=== PATIENT | female | born 1970 | race Caucasian/White ===

== ENCOUNTER 2021-10-20 21:46 | Emergency (ER) | payer OTHER ==
[2021-10-20] MEDS ORDERED: Aspirin Chewable 81 MG TAB ONE (22:21)
[2021-10-20 22:34] LABS: #Basophils 0.1 10x3/uL (0.0-0.2); #Eosinphils 0.1 10x3/uL (0.0-0.5); #Monocytes 0.4 10x3/uL (0.0-1.1); #Neutrophils 8.2 10x3/uL (1.5-8.4); %Basophils 0.5 % (0.0-2.0); %Eosinophils 1.2 % (0.0-6.0); %Lymphocytes 12.2 % (18.0-47.0); %Monocytes 4.1 % (0.0-10.0); %Neutrophils 81.7 % (40.0-75.0); Hemoglobin 13.6 g/dL (12.0-15.5); Mean Corpuscular HGB CONC 35.1 g/dL (32.0-36.0); Mean Corpuscular Hemoglobin 29.3 pg (27.0-33.0); Mean Corpuscular Volume 83.6 fl (81.6-98.3); Mean Platelet Volume 9.9 fl (7.4-10.4); Platelet Count 266 10x3/uL (150-450); RBC Distribution Width 12.7 % (11.5-14.5); Red Blood Cell (RBC) Count 4.64 10x6/uL (3.90-5.03); White Blood Cell (WBC) Count 10.1 10x3/uL (3.5-10.5)
[2021-10-20 22:46] LABS: ALT (SGPT) 22 U/L (8-55); AST (SGOT) 17 U/L (5-34); Albumin 4.6 g/dL (3.5-5.0); Alkaline Phosphatase 62 U/L (40-110); Anion Gap 12 mmol/L (10-20); BUN (Urea Nitrogen) 13 mg/dL (9.8-20.1); Bilirubin, Total 0.4 mg/dL (0.2-1.2); Calc. Creatinine Clearance 0 mL/min (70-130); Calcium 9.3 mg/dL (7.8-10.44); Carbon Dioxide 27 mmol/L (22-29); Chloride 104 mmol/L (98-107); Estimated GFR 106; Globulin 2.7 g/dL (2.4-3.5); Glucose 118 mg/dL (70-105); Lipase 45 U/L (8-78); Potassium 4.3 mmol/L (3.5-5.1); Protein, Total 7.3 g/dL (6.0-8.3); Sodium 139 mmol/L (136-145)
[2021-10-20] MEDS ORDERED: Lidocaine Viscous Sol 2% 15 ml UD Cup ONE (22:51)
[2021-10-20] MEDS ORDERED: Mag-Al Plus 1200 MG/1200 MG/120 MG/30 ML UDCUP ONE (22:51)
[2021-10-21 00:41] LABS: Troponin I Less than 0.010 ng/mL (< 0.028)
== END 2021-10-21 01:04 | disposition home or self-care (01) ==
LOC: CSHERS 21:46
DX: R07.2 Precordial pain (principal)
CPT/HCPCS: 71045; 80053; 83690; 84484; 85025; 93005

== ENCOUNTER 2021-10-26 08:15 | Outpatient (CLI) | payer OTHER | END 2021-10-26 08:16 | disposition home or self-care (01) | LOC: CSHMAMMO 08:15 | PROVIDERS: ATTEND Obstetrics & Gynecology | DX: Z12.31 Encounter for screening mammogram for malignant neoplasm of breast (principal); Z80.3 Family history of malignant neoplasm of breast | CPT/HCPCS: 77063; 77067 ==

== ENCOUNTER 2022-04-11 21:51 | Emergency (ER) | payer OTHER ==
[2022-04-11] MEDS ORDERED: Boostrix 0.5 ML (Tdap) VIAL (>/=7 yrs of age) ONE (22:19)
[2022-04-11] MEDS ORDERED: Triple Antibiotic Oint 1 GM Packet ONE (23:01)
== END 2022-04-11 23:05 | disposition home or self-care (01) ==
LOC: CSHERS 21:51
DX: S61.051A Open bite of right thumb without damage to nail, initial encounter (principal); Z23 Encounter for immunization; W55.01XA Bitten by cat, initial encounter
CPT/HCPCS: 90471; 90715

== ENCOUNTER 2023-04-16 10:21 | Outpatient (CLI) | payer OTHER | END 2023-04-16 10:22 | disposition home or self-care (01) | LOC: CSHMAMMO 10:21 | PROVIDERS: ATTEND Obstetrics & Gynecology | DX: Z12.31 Encounter for screening mammogram for malignant neoplasm of breast (principal); Z80.3 Family history of malignant neoplasm of breast | CPT/HCPCS: 77063; 77067 ==